=== PATIENT | female | born 1990 | race Caucasian/White ===

== ENCOUNTER 2016-11-28 22:20 | Outpatient (CLI) | payer MEDICAID ==
[~2016-11-28] VITALS: Ht 149.9 cm; Wt 86.2 kg
[2016-11-28 23:15] VITALS: Ht 149.9 cm; Wt 86.2 kg
[2016-11-28 23:16] VITALS: BP 112/63; PULSE 113; RESP 16
[2016-11-28] MEDS ORDERED: CALC600T24 PO (23:40)
[2016-11-28] MEDS ORDERED: PREN1TAB17 PO (23:40)
[2016-11-28] MEDS ORDERED: FER325 PO (23:41)
[2016-11-28 23:54] LABS: ADD UMIC YES; UR AMORPHOUS CRYSTAL FEW /HPF (NONE SEEN); UR ASCORBIC ACID NEGATIVE (NEGATIVE); UR BILIRUBIN (Dip) NEGATIVE (NEGATIVE); UR BLOOD (Dip) NEGATIVE (NEGATIVE); UR CLARITY CLOUDY (CLEAR); UR COLOR YELLOW (YELLOW); UR GLUCOSE (Dip) NEGATIVE (NEGATIVE); UR KETONES (Dip) NEGATIVE (NEGATIVE); UR LEUKOCYTE ESTERASE (Dip) NEGATIVE Leu/ul (NEGATIVE); UR MUCUS FEW /HPF (NONE SEEN); UR NITRITE (Dip) NEGATIVE (NEGATIVE); UR RBC 1 /HPF (0-5); UR SPECIFIC GRAVITY (Dip) 1.016 (1.003-1.030); UR SQUAMOUS EPITHELIAL CELL MODERATE /HPF (FEW); UR TOTAL PROTEIN (Dip) NEGATIVE (NEGATIVE); UR UROBILINOGEN (Dip) NEGATIVE (NEGATIVE)
[2016-11-29 00:53] LABS: BASOPHIL # 0.1 10^3/ul (0.0-0.1); BASOPHILS % 0.4 % (0.0-2.0); EOSINOPHILS # 0.6 10^3/ul (0.0-0.5); EOSINOPHILS % 4.5 % (0.0-7.0); HEMATOCRIT 31.7 % (37.0-47.0); HEMOGLOBIN 10.5 g/dl (12.0-16.0); LYMPHOCYTES # 2.7 10^3/ul (0.8-2.9); LYMPHOCYTES % 21.9 % (15.0-51.0); MEAN CORPUSCULAR HEMOGLOBIN 31.9 pg (29.0-33.0); MEAN CORPUSCULAR HGB CONC 33.1 g/dl (32.0-37.0); MEAN CORPUSCULAR VOLUME 96.4 fl (82.0-101.0); MEAN PLATELET VOLUME 9.5 fl (7.4-10.4); NEUTROPHIL # 7.8 10^3/ul (1.6-7.5); NEUTROPHILS % 64.1 % (39.0-77.0); PLATELET COUNT 317 10^3/UL (140-415); RED BLOOD COUNT 3.29 10^6/ul (4.20-5.40); RED CELL DISTRIBUTION WIDTH 13.9 % (11.5-14.5); WHITE BLOOD COUNT 12.2 10^3/ul (4.8-10.8)
[2016-11-29 01:24] LABS: ALBUMIN 3.2 g/dl (3.3-4.9); ALBUMIN/GLOBULIN RATIO 0.84; CALCIUM 9.7 mg/dl (8.4-10.2); CREATININE 0.45 mg/dl (0.44-1.00); POTASSIUM 3.7 mmol/L (3.5-5.1)
--- NOTE | 2016-11-29 02:11 | TRIAGE ---
OB Triage Datetime Report Generated by CPN: 11/29/2016 02:11 Datetime: 11/29/2016 01:45 Stage of : OB Triage Datetime: 11/29/2016 01:35 Stage of : OB Triage Datetime: 11/29/2016 01:30 Stage of : OB Triage Labor Evaluation Frequency: 4-8 Monitor Mode: External Duration (sec)2399: 90-120 Quality: Mild Resting Tone [place]: Relaxed Contraction Comments: PT DENIES FEELING UC'S Heart Rate FHR Baseline Rate: 145 Monitor Mode: External US Variability: Moderate 6-25 bpm Accelerations: 15X15 Decelerations: None Comments: SOME LOSS OF CONTACT DUE TO BABY MOVING FREQUENTLY Pain Assessment Pain Scale: 6 Pain Presence: Constant Pain Type: Sharp Pain Location: RUQ Pain Goal: 3 Pain Relief Measures: Comfort Measures Datetime: 11/29/2016 00:30 Stage of : OB Triage Labor Evaluation Frequency: X4 Monitor Mode: External Duration (sec)2399: 90-120 Quality: Mild Resting Tone [place]: Relaxed Contraction Comments: PT DENIES FEELING UC'S Heart Rate FHR Baseline Rate: 135 Monitor Mode: External US Variability: Moderate 6-25 bpm Accelerations: 15X15 Decelerations: None Comments: SOME LOSS OF CONTACT DUE TO BABY MOVING FREQUENTLY Datetime: 11/28/2016 23:30 Stage of : OB Triage Labor Evaluation Frequency: X3 Monitor Mode: External Duration (sec)2399: 60-100 Quality: Mild Resting Tone [place]: Relaxed Contraction Comments: PT DENIES FEELING UC'S Heart Rate FHR Baseline Rate: 145 Monitor Mode: External US Variability: Moderate 6-25 bpm Accelerations: 15X15 Decelerations: None Datetime: 11/28/2016 23:24 Stage of : OB Triage Assessment Type: Triage Maternal Assessment Level of Consciousness: Fully Conscious DTR's/Clonus: DTRs 2+; No Clonus Headache: Denies Blurred Vision: No Respiratory Effort: Unlabored; Regular Rhythm; Equal Expansion Breath Sounds, Left: Clear and Equal Breath Sounds, Right: Clear and Equal Nausea/Vomiting: Denies RUQ Epigastric Pain: Denies Lower Extremities Edema: Bilateral Lower Extremities Degree: 1+ Upper Extremities Edema: None Degree: None Facial Edema: None Temperature Route: Oral Fall Risk Assessment History of Falling: (0) No Secondary Diagnosis: (0) No Ambulatory Aid: (0) Bedrest/Nurse Assist IV Therapy: (0) No Gait: (0) Normal/Bedrest/Immobile Mental Status: (0) Oriented to Own Ability Fall Score: 0 Fall Risk Score Definition: No Risk: No action required Pain Assessment Pain Scale: 8 Pain Presence: Constant Pain Type: Sharp Pain Location: Abdomen (Annotations: RUQ) Pain Goal: 3 Pain Relief Measures: Comfort Measures Datetime: 11/28/2016 23:23 EGA: 31.6 Datetime: 11/28/2016 23:09 Stage of : OB Triage Datetime: 11/28/2016 23:00 Stage of : OB Triage Datetime: 11/28/2016 22:55 Stage of : OB Triage Datetime: 11/28/2016 22:30 Stage of : OB Triage Time of Arrival: 11/28/2016 22:12 Arrived By: Wheelchair Arrived From: Emergency Dept Chief Complaint: PT STATES L ABDOMINAL PAIN /10 SINCE THURSDAY WHICH WORSENS WHEN SHE STANDS; DENIE S ANY OTHER SYMPTOMS Movement: Present Contractions: Regular Contractions: 4-9 Rupture of Membranes: Denies Vaginal Bleeding: None Vaginal Discharge: Denies Recent Sexual Intercouse: Denies Abdominal Trauma: Not Applicable Patient Complaints: Epigastric Pain Time Provider Notified: 11/28/2016 23:00 Provider Notified: JAH Initial Plan: EFM Contraction Comments: TOCO APPLIED Comments: US APPLIED
--- NOTE | 2016-11-29 04:36 | PN ---
Triage Information Date/Time 11/29/16 Reason for visit: abdominal pain on left side for 5days Weeks of Gestation 32weeks /Para A1(sab) Diabetes: none Hypertention: none Additional information denies any other symptoms such as nausea ,vomiting or diarrhea or any fever chills or urinary symptoms positional pain alleviated by resting Objective Vital Signs Date Time Temp Pulse Resp B/P Pulse Ox O2 Delivery O2 Flow Rate FiO2 11/28/16 23:16 98.4 113 16 112/63 Room Air Heart Rate: 140's Contractions: 6-10 Minutes Apart Exam mild uterine activities which is not felt by patient Results/Medications Result Diagram: 11/29/16 0012 11/29/16 0012 Results 24 hrs Laboratory Tests Test 11/28/16 23:00 11/29/16 00:12 Urine Color YELLOW Urine Clarity CLOUDY A Urine pH 6.0 Urine Specific [place] 1.016 Urine Ketones NEGATIVE Urine Nitrite NEGATIVE Urine Bilirubin NEGATIVE Urine Urobilinogen NEGATIVE Urine Leukocyte Esterase NEGATIVE Urine Microscopic RBC 1 Urine Microscopic WBC 5 Urine Squamous Epithelial Cells MODERATE Urine Amorphous Crystals FEW A Urine Mucus FEW A Urine Hemoglobin NEGATIVE Urine Glucose NEGATIVE Urine Total Protein NEGATIVE White Blood Count 12.2 H Red Blood Count 3.29 L Hemoglobin 10.5 L Hematocrit 31.7 L Mean Corpuscular Volume 96.4 Mean Corpuscular Hemoglobin 31.9 Mean Corpuscular Hemoglobin Concent 33.1 Red Cell Distribution Width 13.9 Platelet Count 317 Mean Platelet Volume 9.5 Neutrophils % 64.1 Lymphocytes % 21.9 Monocytes % 8.0 Eosinophils % 4.5 Basophils % 0.4 Nucleated Red Blood Cells % 0.0 Neutrophils # 7.8 H Lymphocytes # 2.7 Monocytes # 1.0 H Eosinophils # 0.6 H Basophils # 0.1 Nucleated Red Blood Cells # 0.0 Sodium Level 136 Potassium Level 3.7 Chloride Level 106 Carbon Dioxide Level 23 Anion Gap 11 Blood Urea Nitrogen 9 Creatinine 0.45 Glucose Level 97 Calcium Level 9.7 Total Bilirubin 0.0 L Direct Bilirubin 0.00 Indirect Bilirubin 0.0 Aspartate Amino Transf (AST/SGOT) 16 Alanine Aminotransferase (ALT/SGPT) 22 Alkaline Phosphatase 98 Total Protein 7.0 Albumin 3.2 L Globulin 3.80 H Albumin/Globulin Ratio 0.84 Imaging Results BPP8/8 CVL 3.8 EMORY 24.6 Disposition: Discharge Assessment/Plan IUP 32weeks abdominal pain left(ligament pain) polyhydroamnios Plan discharge home RTH for EMORY in 3days abdominal binder ABRIL TYSON MD Nov 29, 2016 04:36
--- NOTE | 2016-11-29 08:30 | RADRPT ---
PROCEDURE: Obstetrical ultrasound for biophysical profile CLINICAL INDICATION: Biophysical profile. . TECHNIQUE: Obstetrical ultrasound of the uterus for biophysical profile. Transabdominal and transvaginal views are obtained. COMPARISON: None FINDINGS: Single intrauterine gestation. Presentation: Cephalic. Placenta: Anterior. No evidence of placental abruption. No evidence of placenta previa. Cervix is closed as visualized transvaginally measuring 3.8 cm. breathing movement = 2/2 tone = 2/2 motion = 2/2 EMORY = 2/2 EMORY = 24.6 cm heart rate: 161 beats per minute IMPRESSION: Single intrauterine gestation. Biophysical profile 09/16 Polyhydramnios. RPTAT: AADD .Benjamín Leonard MD, Date Time Electronically viewed and signed by .Benjamín Leonard MD, on 11/28/2016 23:59 .B/
== END 2016-11-29 01:55 | disposition home or self-care (01) ==
LOC: OBT 22:20 → L-D 22:20 → OBT 11-29 01:55
PROVIDERS: ATTEND Obstetrics & Gynecology
DX: O26.893 Other specified pregnancy related conditions, third trimester (principal); R10.9 Unspecified abdominal pain; O40.3XX0 Polyhydramnios, third trimester, not applicable or unspecified; Z3A.32 32 weeks gestation of pregnancy
CPT/HCPCS: 76817; 76818; 80053; 81001; 85025; Z7500; G0463

== ENCOUNTER 2016-12-02 11:04 | Outpatient (CLI) | payer MEDICAID ==
[~2016-12-02] VITALS: Ht 149.9 cm; Wt 84.8 kg
[~2016-12-02 11:04] MED LIST: CALC600T24 PO; FER325 PO; PREN1TAB17 PO
[2016-12-02 11:54] VITALS: BP 123/68; PULSE 118; RESP 18
[2016-12-02 11:55] VITALS: Ht 149.9 cm; Wt 84.8 kg
--- NOTE | 2016-12-02 13:08 | RADRPT ---
PROCEDURE: OB ultrasound for biophysical profile CLINICAL INDICATION: Decreased movement TECHNIQUE: Multiple sonographic images of the pelvis were obtained. Transabdominal views of the g ravid uterus are available for review. The images were reviewed on a PACS workstation. COMPARISON: Biophysical profile dated 11/28/2016 FINDINGS: breathing movement = 2/2 tone = 2/2 motion = 2/2 EMORY = 2/2 EMORY = 22.8 cm Single live intrauterine with cardiac activity of 136 bpm. position is cephal ic. The placenta is anterior. IMPRESSION: 1. Single live intrauterine gestation. 2. Biophysical profile = 09/16. 3. EMORY = 22.8 cm. RPTAT: HH .Leandra Jo MD, Date Time Electronically viewed and signed by .Leandra Jo MD, on 12/02/2016 13:08 .G/
--- NOTE | 2016-12-02 13:44 | PN ---
Triage Information Date/Time December 02, 2016 Reason for visit: Here for follow-up on his stress test on biophysical profiles Weeks of Gestation 32+ weeks /Para 2 para 0 Diabetes: none Hypertention: none Additional information Was referred by labor is on 1020 for follow-up nondistressed test and biophysical profile Objective Vital Signs Date Time Temp Pulse Resp B/P Pulse Ox O2 Delivery O2 Flow Rate FiO2 12/02/16 11:54 99.3 118 18 123/68 Room Air Heart Rate: 140's Heart Rate Comments Reactive Contractions: None Results/Medications Imaging Results Biophysical profile = 09/16. EMORY = 22.8 cm. Disposition: Discharge Assessment/Plan Follow-up with the clinic as usual BRENDA YEBOAH MD Dec 02, 2016 13:44
--- NOTE | 2016-12-02 13:48 | PD.PPDC ---
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
--- NOTE | 2016-12-02 14:46 | TRIAGE ---
OB Triage Datetime Report Generated by CPN: 12/02/2016 14:45 Datetime: 12/02/2016 11:57 Comments: NST DONE Datetime: 12/02/2016 11:56 Labor Evaluation Frequency: OCC Monitor Mode: External Duration (sec)2399: 60-100 Quality: Mild Pattern: Normal: <= 5 Contractions in 10 Minutes Resting Tone [place]: Relaxed Heart Rate FHR Baseline Rate: 150 Monitor Mode: External US FHR Baseline Changes: No Baseline Change Variability: Moderate 6-25 bpm Accelerations: 15X15 Decelerations: None Category: Category I Pain Assessment Pain Presence: None/Denies Datetime: 12/02/2016 11:42 Time of Arrival: 12/02/2016 10:57 EGA: 32.3 Arrived By: Ambulatory Arrived From: Home Chief Complaint: Repeat BPP/NST Movement: Present Contractions: Irregular Rupture of Membranes: Denies Vaginal Bleeding: Normal Show Vaginal Discharge: Denies Recent Sexual Intercouse: Denies Abdominal Trauma: Not Applicable Patient Complaints: None Time Provider Notified: 12/02/2016 13:40 Provider Notified: Ziyad Initial Plan: BPP/NST Datetime: 12/02/2016 11:20 Assessment Type: Triage Maternal Assessment Level of Consciousness: Fully Conscious DTR's/Clonus: DTRs 2+; No Clonus Headache: Denies Blurred Vision: No Respiratory Effort: Unlabored; Regular Rhythm; Equal Expansion Breath Sounds, Left: Clear and Equal Breath Sounds, Right: Clear and Equal Nausea/Vomiting: Denies RUQ Epigastric Pain: Denies Lower Extremities Edema: Bilateral Lower Extremities Degree: Trace Upper Extremities Edema: Bilateral Upper Extremities Degree: Trace Facial Edema: None Fall Risk Assessment History of Falling: (0) No Secondary Diagnosis: (0) No Ambulatory Aid: (0) Bedrest/Nurse Assist IV Therapy: (0) No Gait: (0) Normal/Bedrest/Immobile Mental Status: (0) Oriented to Own Ability Fall Score: 0 Fall Risk Score Definition: No Risk: No action required Datetime: 11/28/2016 23:24 Fall Score: 0 Fall Risk Score Definition: No Risk: No action required Datetime: 11/28/2016 23:23 EGA: 31.6
== END 2016-12-02 14:30 | disposition home or self-care (01) ==
LOC: OBT 11:04 → OBG 11:04 → OBT 14:30
PROVIDERS: ATTEND Obstetrics & Gynecology
DX: O36.8130 Decreased fetal movements, third trimester, not applicable or unspecified (principal); Z3A.32 32 weeks gestation of pregnancy
CPT/HCPCS: 76818; Z7500; G0463

== ENCOUNTER 2017-01-20 13:50 | Inpatient (IN) | payer MEDICAID ==
[~2017-01-20] VITALS: Ht 149.9 cm; Wt 89.2 kg
[~2017-01-20 13:50] MED LIST changes: +OXYTOCIN 30 UNITS/LR 500 ML BAG IV ONE
[2017-01-20 14:30] VITALS: Ht 149.9 cm; Wt 89.2 kg
[2017-01-20] MEDS ORDERED: METHYLERGONOVINE 0.2 MG INJ IM PRN ×2 (14:30→21:30)
[2017-01-20] MEDS ORDERED: OXYTOCIN 30 UNITS/LR 500 ML IV SCH (14:30)
[2017-01-20] MEDS ORDERED: CEFAZOLIN 2 GM/50 ML (PMX) 50 ML IVPB SCH (14:30)
[2017-01-20] MEDS ORDERED: MISOPROSTOL 200 MCG TAB PR PRN ×2 (14:30→21:30)
[2017-01-20] MEDS ORDERED: OXYTOCIN 30 UNITS/LR 500 ML IV PRN ×2 (14:30→21:30)
[2017-01-20] MEDS ORDERED: CARBOPROST 250 MCG INJ IM PRN ×2 (14:30→21:30)
[2017-01-20 14:31] VITALS: BP 118/82; PULSE 96; RESP 18
[2017-01-20 14:36] LABS: BASOPHIL # 0.1 10^3/ul (0.0-0.1); BASOPHILS % 0.5 % (0.0-2.0); EOSINOPHILS # 0.4 10^3/ul (0.0-0.5); EOSINOPHILS % 3.7 % (0.0-7.0); HEMATOCRIT 38.7 % (37.0-47.0); HEMOGLOBIN 13.2 g/dl (12.0-16.0); LYMPHOCYTES # 2.4 10^3/ul (0.8-2.9); LYMPHOCYTES % 24.3 % (15.0-51.0); MEAN CORPUSCULAR HEMOGLOBIN 31.3 pg (29.0-33.0); MEAN CORPUSCULAR HGB CONC 34.1 g/dl (32.0-37.0); MEAN CORPUSCULAR VOLUME 91.7 fl (82.0-101.0); MEAN PLATELET VOLUME 10.3 fl (7.4-10.4); MONOCYTE # 0.7 10^3/ul (0.3-0.9); MONOCYTES % 7.2 % (0.0-11.0); NEUTROPHIL # 6.4 10^3/ul (1.6-7.5); NEUTROPHILS % 63.8 % (39.0-77.0); PLATELET COUNT 308 10^3/UL (140-415); RED BLOOD COUNT 4.22 10^6/ul (4.20-5.40); RED CELL DISTRIBUTION WIDTH 13.7 % (11.5-14.5)
[2017-01-20] MEDS: LACTATED RINGER'S 1,000 ML IV SCH ×3 (14:41→21:46)
[2017-01-20 14:49] LABS: INR 0.9; PROTIME 12.2 Sec (11.9-14.9)
[2017-01-20 14:55] LABS: PARTIAL THROMBOPLASTIN TIME 26.3 Sec (25.0-35.0)
[2017-01-20] MEDS ORDERED: morphine SULFATE/PF (10 MG/10 ML) INJ ONE (15:47)
[2017-01-20] MEDS ORDERED: PHENYLephrine (100 MCG/ML) 5ML SYG ONE ×2 (15:58→16:32)
[2017-01-20] MEDS ORDERED: ONDANSETRON 4 MG INJ ONE (16:25)
--- NOTE | 2017-01-20 17:03 | HP ---
Date/Time of Note Date/Time of Note DATE: 01/20/17 TIME: 16:54 OB - History Hx of Present Free Text/Dictation 26-year-old female 1 para 0 admitted for primary per patient desire Possibility of macrosomia with gestational diabetes and dangers to delivering the vaginally was described to the patient and she elected to have a primary section as mode of her delivery Last Menstrual Period: May 03, 2016 Estimated Due Date: Jan 24, 2017 : 1 Para: 0 Care: Good Care Ultrasounds: Normal mid trimester US Obstetrical Complications: Gestational Diabetes Medical Complications: None Past Family/Social History * Past Medical, Surgical, Family and Obstetric Histories reviewed from chart. Blood Type: O+ Rubella: immune RPR/VDRL: Negative GBS Status: Positive HBsAG: Negative OB Admission Exam Vital Signs Vital Signs Vital Signs Date Time Temp Pulse Resp B/P Pulse Ox O2 Delivery O2 Flow Rate FiO2 01/20/17 14:31 98.5 96 18 118/82 Room Air Physical Exam HEENT: WNL Heart: Rhythm Normal Lungs: Clear, Equal Abdomen: WNL Extremities: Normal Reflexes: Normal Cervical Dilatation: None Effacement: 0% Station: -3 Membranes: Intact Heart Rate: 140's Accelerations: Accelerations Present Decelerations: No Decelerations Varibility: Marked Contractions on Admission: None Last 72 hourBlood Glucose Bedside Glucose - 72 Hours Test 01/20/17 14:48 Bedside Glucose 79mg/dL (70-220) Last 72 hours Lab Results CBC & BMP 01/20/17 14:25 OB Assessment/Plan Reason for admission: section Other Assessment: 39+ weeks gestation Patient desires to have a delivery Possible microsomia Gestational diabetes Unengaged vertex Other plan: Primary delivery BRENDA YEBOAH MD Jan 20, 2017 17:03
--- NOTE | 2017-01-20 17:08 | OPR ---
Operative Report Planned Procedure Procedure date Jan 20, 2017 Procedure(s) Primary section Performed by see signature line Principal Associate Df. Buckley Anesthesiologist: MODE JACOBS Pre-procedure diagnosis Term gestation Gestational diabetes Possible macrosomia Patient desires Anesthesia Type: spinal Post-Procedure Post-procedure diagnosis Status post delivery Findings Live Baby in OT position Estimated Blood Loss: 500 - 600 mls Specimen(s) none Grafts/Implant(s) none Complication(s) none Pt Condition post procedure: stable Disposition: PACU Procedure Description Under satisfactory anaesthesia a Pfannenstiel incision was made two fingerbreadth above and parallel to the symphysis of pubis. Incision was extended laterally to the border of the Recti muscles on either sides. Incision was carried down with sharp and blunt dissection until fascia was reached. Anterior Recti muscle fascia was incised in mid portion and incision extended laterally to the border of skin incision. Fascia was mobilized from muscle superiorly and Recti muscles were from midline using sharp and blunt dissection. Peritoneum was visualized; Avoiding bowel and bladder it was incised . Incision was extended superiorly and inferiorly. Bladder blade was placed. Posterior peritoneum covering the lower segment of the uterus and lower segment of the uterus were incised. Incision was extended laterally to the border of Round Lig. on either sides and baby was delivered from OP. position . Amniotic fluid appeared clear. Cord blood was obtained and cord had 3 vessels . Placenta was delivered spontaneously and appeared intact and complete. Intrauterine cavity was rubbed with a laparotomy sponge. Uterine incision was closed in 2 layers using running stitches of No1 Monocryl. Hemostasis appeared secure. Ovaries and Fallopian tubes were within normal limits. Announcing needle, lap sponge and instrument count to be correct abdomen was closed in layers as follows: Peritoneum and Recti muscles with running stitches of 20 Vicryl. Fascia with running stitch of No 1 PDS. Subcutaneous tissue with running stitches of 20 Chromic and skin was closed using moni. Patient tolerated the procedure well and was transferred to [facility] in good condition. BRENDA YEBOAH MD Jan 20, 2017 17:08
[2017-01-20] MEDS ORDERED: ONDANSETRON 4 MG INJ IV STA (18:00)
[2017-01-20] MEDS ORDERED: KETOROLAC 30 MG INJ IM STA (18:50)
[2017-01-20] MEDS ORDERED: KETOROLAC 30 MG INJ ONE (18:52)
[2017-01-20] MEDS ORDERED: KETOROLAC 30 MG INJ IV STA (19:01)
[2017-01-20] MEDS ORDERED: METOCLOPRAMIDE 10 MG INJ IV PRN (19:30)
[2017-01-20] MEDS ORDERED: ONDANSETRON 4 MG INJ IV PRN ×2 (19:30)
[2017-01-20] MEDS ORDERED: ALBUTEROL 0.083% (NEB) 2.5 MG/3 ML AMP HHN PRN (19:30)
[2017-01-20] MEDS ORDERED: NALOXONE (0.4 MG/ML) INJ IV PRN (19:30)
[2017-01-20] MEDS ORDERED: KETOROLAC 30 MG INJ IV PRN ×2 (19:30)
[2017-01-20] MEDS ORDERED: DIPHENHYDRAMINE 50 MG INJ IV PRN ×2 (19:30)
[2017-01-20] MEDS ORDERED: HYDROmorphONE 0.5 MG/0.5 ML SYG IV PRN ×2 (19:30)
[2017-01-20] MEDS ORDERED: MEPERIDINE 25 MG INJ IV PRN (19:30)
[2017-01-20] MEDS ORDERED: HYDROmorphONE (0.2 MG/ML) 10ML SYG IV PRN ×2 (19:30)
[2017-01-20] MEDS ORDERED: FENTAnyl 50 MCG/ML VIAL IV PRN ×2 (19:30)
[2017-01-20 21:00] VITALS: BP 101/56; PULSE 86; RESP 18
[2017-01-20] MEDS ORDERED: NA PHOSPHATE/BIPHOS 133 ML ENEMA PR PRN (21:30)
[2017-01-20] MEDS ORDERED: LANOLIN 7 GM TUBE TOP PRN (21:30)
[2017-01-20] MEDS: CEFAZOLIN 2 GM/50 ML (PMX) 50 ML IV SCH (21:46)
[2017-01-20] MEDS: CLINDAMYCIN 300 MG CAP PO SCH (23:33)
[2017-01-21] VITALS (7 sets, daily range): BP systolic 98–111; BP diastolic 56–72; PULSE 84–103; RESP 17–19
[2017-01-21] MEDS: CLINDAMYCIN 300 MG CAP PO SCH ×4 (05:32→23:41)
[2017-01-21] MEDS: CEFAZOLIN 2 GM/50 ML (PMX) 50 ML IV SCH ×2 (05:32→13:32)
[2017-01-21] MEDS: LACTATED RINGER'S 1,000 ML IV SCH ×3 (06:26→21:27)
[2017-01-21] MEDS: ACCU-CHEK XX SCH ×4 (07:30→20:05)
[2017-01-21] MEDS: metFORMIN (XR) 500 MG TAB PO SCH ×2 (08:55→20:37)
[2017-01-21] MEDS: SENNA/DOCUSATE NA (8.6MG/50MG) TAB PO SCH ×2 (08:55→20:37)
[2017-01-21] MEDS ORDERED: BISACODYL 10 MG SUPP PR ONE (10:00)
[2017-01-21 10:48] LABS: BASOPHILS % 0.4 % (0.0-2.0); EOSINOPHILS # 0.2 10^3/ul (0.0-0.5); EOSINOPHILS % 1.9 % (0.0-7.0); HEMATOCRIT 26.6 % (37.0-47.0); HEMOGLOBIN 8.9 g/dl (12.0-16.0); LYMPHOCYTES # 1.8 10^3/ul (0.8-2.9); LYMPHOCYTES % 17.9 % (15.0-51.0); MEAN CORPUSCULAR HEMOGLOBIN 31.1 pg (29.0-33.0); MEAN CORPUSCULAR HGB CONC 33.5 g/dl (32.0-37.0); MEAN PLATELET VOLUME 9.6 fl (7.4-10.4); MONOCYTE # 0.7 10^3/ul (0.3-0.9); MONOCYTES % 7.1 % (0.0-11.0); NEUTROPHIL # 7.3 10^3/ul (1.6-7.5); NEUTROPHILS % 72.3 % (39.0-77.0); PLATELET COUNT 209 10^3/UL (140-415); RED BLOOD COUNT 2.86 10^6/ul (4.20-5.40); RED CELL DISTRIBUTION WIDTH 13.6 % (11.5-14.5); WHITE BLOOD COUNT 10.1 10^3/ul (4.8-10.8)
[2017-01-21] MEDS: IBUPROFEN 800 MG TAB PO SCH ×2 (17:36→23:41)
[2017-01-21] MEDS: HYDROCODONE/APAP (5/325) TAB PO PRN (17:52)
[2017-01-21] MEDS ORDERED: HYDROCODONE/APAP (5/325) TAB PO PRN (19:30)
--- NOTE | 2017-01-21 19:46 | PN ---
Date/Time of Note Date/Time of Note DATE: 01/21/17 TIME: 19:45 Assessment/Plan VTE Prophylaxis VTE Prophylaxis Intervention: ambulation Lines/Catheters IV Catheter Type (from Nrsg): Peripheral IV Assessment/Plan Assessment/Plan Status post postop day 1 Advance diet and ambulate Continue to monitor vital signs and blood sugars Subjective 24 Hr Interval Summary No bowel movement Passing flatus Constitutional: BM, ambulates, flatus, improved, no complaints, urine output Pain Control: well controlled Exam/Review of Systems Vital Signs Vitals Vital Signs Date Time Temp Pulse Resp B/P Pulse Ox O2 Delivery O2 Flow Rate FiO2 01/21/17 16:30 98.8 103 17 111/70 Room Air 01/21/17 11:30 100 01/21/17 02:57 21 Intake and Output 01/20/17 01/20/17 01/21/17 15:00 23:00 07:00 Intake Total 1000 ml 425 ml 1050 ml Output Total 1000 ml 600 ml Balance 1000 ml -575 ml 450 ml Exam Free Text/Dictation Abdomen is soft and not distended, sounds are present Incision is covered Constitutional: alert, oriented, well developed Psych: nl mood/affect, no complaints Head: atraumatic, normocephalic Eyes: EOMI, nl conjunctiva, nl lids, nl sclera ENMT: mucosa pink and moist, nl external ears & nose, nl lips & teeth, nl nasal mucosa & septum Neck: non-tender, supple Respiratory: clear to auscultation, normal air movement Cardiovascular: nl pulses, regular rate and rhythm Gastrointestinal: nl liver, spleen, non-tender, soft Drains None Musculoskeletal: nl extremities to inspection, nl gait and stance Extremities: normal pulses 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
[2017-01-21] MEDS ORDERED: IBUPROFEN 800 MG TAB PO SCH (22:00)
[2017-01-22] MEDS ORDERED: BISACODYL 10 MG SUPP PR ONE (00:36)
[2017-01-22] MEDS: OXYCODONE/ACETAMINOPHEN (5/325) TAB PO PRN ×2 (00:42→11:30)
[2017-01-22 04:00] VITALS: BP 111/65; PULSE 95; RESP 18
[2017-01-22] MEDS: LACTATED RINGER'S 1,000 ML IV SCH ×2 (05:27→13:27)
[2017-01-22] MEDS: IBUPROFEN 800 MG TAB PO SCH ×3 (05:37→21:07)
[2017-01-22] MEDS: CLINDAMYCIN 300 MG CAP PO SCH ×4 (05:38→23:41)
[2017-01-22] MEDS: ACCU-CHEK XX SCH ×3 (07:30→13:50)
[2017-01-22 08:30] VITALS: BP 111/70; PULSE 90; PULSE 92; RESP 18; RESP 20
[2017-01-22] MEDS: SENNA/DOCUSATE NA (8.6MG/50MG) TAB PO SCH ×2 (09:23→21:07)
[2017-01-22] MEDS: metFORMIN (XR) 500 MG TAB PO SCH ×2 (09:23→21:07)
[2017-01-22 16:00] VITALS: BP 112/72; PULSE 96; RESP 20
--- NOTE | 2017-01-22 17:14 | DS ---
Date/Time of Note Date/Time of Note home today or next day DATE: 01/22/17 TIME: 17:11 Obstetrical Discharge Record Final Diagnosis Final Diagnosis: Term delivered Other Final Diagnosis S/P C/S Section Section: Repeat Complications Gestational Diabetes Condition on Discharge Physical Assessment Last Vitals: See nurse's notes Voiding: Yes Bowel Movement: Yes Breast: Soft, non-tender, Filling Fundus: Firm Abdomen and Incision: soft BS + Incision healing well Calf Tenderness: No Patient Condition: Good BRENDA YEBOAH MD Jan 22, 2017 17:14
--- NOTE | 2017-01-22 17:17 | DS ---
Date/Time of Note Date/Time of Note DATE: 01/22/17 TIME: 17:16 Discharge Summary Admission/Discharge Info Admit Date/Time Jan 20, 2017 at 13:50 Discharge Date/Time January 22 or 2016 Discharge Diagnosis Status post repeat Patient Condition: Good Procedures Salvatore delivery Hx of Present Illness 26-year-old female underwent repeat section Hospital Course Uncomplicated Home Meds Reported Medications Ferrous Sulfate* (Ferrous Sulfate*) 325 Mg Tabec, 325 MG PO DAILY, TAB 11/28/16 Calcium Carbonate* (Calcium Carbonate*) 600 MG Ca Tab, 600 MG PO, TAB 11/28/16 Vit-Iron Fumarate-FA ( Tablet) 1 Each Tablet, 1 TAB PO DAILY, TAB 11/28/16 Follow-up Plan 5 6 days in the clinic for staple removal Primary Care Provider Care Physician No Primary Time spent on discharge: > 30 minutes Pending Labs Laboratory Tests Test 01/21/17 17:39 01/21/17 20:13 01/22/17 08:01 01/22/17 11:23 Bedside Glucose 108mg/dL (70-220) 137mg/dL (70-220) 87mg/dL (70-220) 91mg/dL (70-220) BRENDA YEBOAH MD Jan 22, 2017 17:17
--- NOTE | 2017-01-22 17:18 | PD.PPDC ---
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
[2017-01-22] MEDS ORDERED: METF500T3 PO (17:19)
[2017-01-22] MEDS ORDERED: IBUP800T25 PO (17:19)
[2017-01-22 19:41] VITALS: BP 109/62; PULSE 86; RESP 18
[2017-01-22] MEDS: HYDROCODONE/APAP (5/325) TAB PO PRN (19:41)
[2017-01-23 04:29] VITALS: BP 116/69; PULSE 95; RESP 18
[2017-01-23] MEDS: IBUPROFEN 800 MG TAB PO SCH ×2 (05:39→13:24)
[2017-01-23] MEDS: CLINDAMYCIN 300 MG CAP PO SCH ×3 (05:39→18:39)
[2017-01-23 08:00] VITALS: BP 121/74; RESP 18
[2017-01-23] MEDS ORDERED: DIPHTH/TET/ACEL PERTUSS (ADULT) 0.5 ML VIAL IM* ONE (09:00)
[2017-01-23] MEDS ORDERED: MEASLES,MUMPS,RUBELLA VACCINE INJ SC* ONE (09:00)
[2017-01-23] MEDS: metFORMIN (XR) 500 MG TAB PO SCH (09:09)
[2017-01-23] MEDS: SENNA/DOCUSATE NA (8.6MG/50MG) TAB PO SCH (09:09)
[2017-01-23] MEDS: HYDROCODONE/APAP (5/325) TAB PO PRN (10:38)
[2017-01-23 16:00] VITALS: BP 106/60; PULSE 78; RESP 18
[2017-01-23] MEDS ORDERED: IBUP800T25 PO (16:22)
[2017-01-23] MEDS ORDERED: METF500T3 PO (16:25)
[2017-01-23] MEDS: OXYCODONE/ACETAMINOPHEN (5/325) TAB PO PRN (17:48)
--- NOTE | 2017-01-26 10:06 | CONS ---
Date/Time of Note Date/Time of Note DATE: 01/26/17 TIME: 10:05 Consultation Date/Type/Reason Admit Date/Time Jan 20, 2017 at 13:50 Initial Consult Date 01/21/17 Type of Consultation: Anesthesiology Reason for Consultation Follow up 24 HR Interval Summary Free Text/Dictation Pt seen and examined at bedside on 01/21/17 was POD#1 s/p c/s. Pt received spinal duramorph injection for post op pain. She stated she was doing well with adequate pain control. No N/V/WHITLOCK/Numbness in extremities. Will follow. Exam/Review of Systems Vital Signs Vitals Vital Signs Date Time Temp Pulse Resp B/P Pulse Ox O2 Delivery O2 Flow Rate FiO2 01/23/17 16:00 98.0 78 18 106/60 Room Air Results Results 24 hrs Laboratory Tests Test 01/25/17 13:51 Lab Scanned Report REFERENCE LAB MODE JACOBS Jan 26, 2017 10:06
== END 2017-01-23 18:58 | disposition home or self-care (01) | DRG 766 ==
LOC: L-D 13:50 → PP1 20:51
PROVIDERS: ADMIT Obstetrics & Gynecology; ATTEND Obstetrics & Gynecology
PROC: 3E033VJ Introduction of Other Hormone into Peripheral Vein, Percutaneous Approach (ICD-10-PCS; 2017-01-20)
PROC: 10D00Z1 Extraction of Products of Conception, Low, Open Approach (ICD-10-PCS; principal; 2017-01-20 15:30)
DX: O24.429 Gestational diabetes mellitus in childbirth, unspecified control (principal); O36.63X0 Maternal care for excessive fetal growth, third trimester, not applicable or unspecified; Z3A.39 39 weeks gestation of pregnancy; Z37.0 Single live birth
CPT/HCPCS: 82962; 85025; 85610; 85730; 86592; 86850; 86900; 86901; 87340; 90715; 94760; 99464; J0690; J1885; J2274; J2370; J2405; J2590; J7120

== ENCOUNTER 2017-01-26 12:48 | Inpatient (IN) | payer MEDICAID ==
[~2017-01-26] VITALS: Ht 149.9 cm; Wt 81.2 kg
[~2017-01-26 12:48] MED LIST changes: +IBUP800T25 PO; +METF500T3 PO; -OXYTOCIN 30 UNITS/LR 500 ML BAG IV ONE
--- NOTE | 2017-01-26 13:46 | ERD ---
ER Documentation Chief Complaint Chief Complaint Pt referred by PMD for evaluation of incision for infection HPI 26-year-old female who is 6 days post who is G2 0 comes in for evaluation of wound check for erythema and blistering to the skin. Patient's OB is Dr Ziyad Feliz, and was referred to the er by Juliet Sierra CNM, Patient states that she has had pain around the surgical site, and she has had blistering and redness beginning today, she went into the get her wound check at the office and they referred her to emergency room. Patient denies fevers, chills, nausea, vomiting. ROS All systems reviewed and are negative except as per history of present illness. Medications Home Meds Active Scripts Metformin* (Glucophage* XR) 500 Mg Tab.sr.24h, 500 MG PO BID, #120 6 Refills Prov:BRENDA YEBOAH MD 01/23/17 Ibuprofen* (Ibuprofen*) 800 Mg Tablet, 800 MG PO Q8, #30 TAB 0 Refills Prov:BRENDA YEBOAH MD 01/23/17 Reported Medications Ferrous Sulfate* (Ferrous Sulfate*) 325 Mg Tabec, 325 MG PO DAILY, TAB 11/28/16 Calcium Carbonate* (Calcium Carbonate*) 600 MG Ca Tab, 600 MG PO, TAB 11/28/16 Vit-Iron Fumarate-FA ( Tablet) 1 Each Tablet, 1 TAB PO DAILY, TAB 11/28/16 Allergies Allergies: Coded Allergies: No Known Allergy (Unverified , 11/28/16) PMhx/Soc History of Surgery: Yes () Anesthesia Reaction: No Hx Neurological Disorder: No Hx Respiratory Disorders: No Hx Cardiac Disorders: No Hx Psychiatric Problems: No Hx Miscellaneous Medical Probl: No Hx Alcohol Use: No Hx Substance Use: No Hx Tobacco Use: No Smoking Status: Never smoker Physical Exam Vitals Vital Signs Date Time Temp Pulse Resp B/P Pulse Ox O2 Delivery O2 Flow Rate FiO2 01/26/17 12:56 98.9 93 18 130/72 95 Physical Exam General: Well-developed, well-nourished. The patient appears in no acute distress. HEENT: Head is normocephalic, atraumatic. No scleral icterus. Neck: Supple. Nontender. Lungs: Clear to auscultation. Normal air movement. Heart: Regular rate and rhythm. S1 and S2 are normal. No murmurs, gallops, or rubs. Abdomen: Soft, site is intact, draining it is erythematous, warm, with blistering. Bowel sounds are normoactive. Extremities: No clubbing or cyanosis. Normal pulses. Moving extremities x 4. No weakness. Neurologic: Alert and oriented 3. No focal deficits. Skin: Normal turgor. No rash or lesions. Result Diagram: 01/26/17 1400 01/26/17 1400 Results 24 hrs Laboratory Tests Test 01/26/17 14:00 01/26/17 16:05 White Blood Count 11.610^3/ul Red Blood Count 3.0110^6/ul Hemoglobin 9.3g/dl Hematocrit 28.6% Mean Corpuscular Volume 95.0fl Mean Corpuscular Hemoglobin 30.9pg Mean Corpuscular Hemoglobin Concent 32.5g/dl Red Cell Distribution Width 13.8% Platelet Count 17263^3/UL Mean Platelet Volume 9.1fl Neutrophils % 67.8% Lymphocytes % 21.8% Monocytes % 6.4% Eosinophils % 2.7% Basophils % 0.3% Nucleated Red Blood Cells % 0.0/100WBC Neutrophils # 7.910^3/ul Lymphocytes # 2.510^3/ul Monocytes # 0.710^3/ul Eosinophils # 0.310^3/ul Basophils # 0.010^3/ul Nucleated Red Blood Cells # 0.010^3/ul Sodium Level 144mmol/L Potassium Level 4.0mmol/L Chloride Level 107mmol/L Carbon Dioxide Level 26mmol/L Anion Gap 15 Blood Urea Nitrogen 11mg/dl Creatinine 0.61mg/dl Glucose Level 96mg/dl Calcium Level 9.0mg/dl Total Bilirubin 0.2mg/dl Direct Bilirubin 0.00mg/dl Indirect Bilirubin 0.2mg/dl Aspartate Amino Transf (AST/SGOT) 38IU/L Alanine Aminotransferase (ALT/SGPT) 51IU/L Alkaline Phosphatase 112IU/L Total Protein 7.0g/dl Albumin 3.2g/dl Globulin 3.80g/dl Albumin/Globulin Ratio 0.84 Urine Color YELLOW Urine Clarity CLEAR Urine pH 7.0 Urine Specific [place] 1.030 Urine Ketones NEGATIVEmg/dL Urine Nitrite NEGATIVEmg/dL Urine Bilirubin NEGATIVEmg/dL Urine Urobilinogen 1+mg/dL Urine Leukocyte Esterase 1+Luke/ul Urine Microscopic RBC 2/HPF Urine Microscopic WBC 22/HPF Urine Hemoglobin 1+mg/dL Urine Glucose NEGATIVEmg/dL Urine Total Protein NEGATIVEmg/dl Current Medications Medications (Trade) Dose Ordered Sig/Meño Route PRN Reason Start Time Stop Time Status Last Admin Dose Admin IV Flush 10 ml 10 ml STK-MED ONCE .ROUTE 01/26/17 15:50 01/26/17 15:51 DC 01/26/17 15:52 Sodium Chloride (NS) 100 ml @ ud STK-MED ONCE .ROUTE 01/26/17 15:50 01/26/17 15:51 DC 01/26/17 15:53 Iohexol 150 ml 150 ml STK-MED ONCE .ROUTE 01/26/17 15:50 01/26/17 15:51 DC 01/26/17 15:53 Ciprofloxacin/ Dextrose 200 ml @ 200 mls/hr ONCE ONCE IVPB 01/26/17 17:30 01/26/17 18:29 Vancomycin HCl (Vancocin) 250 ml @ 125 mls/hr ONCE STAT IVPB 01/26/17 17:27 01/26/17 19:26 DIAGNOSTIC IMAGING REPORT Patient: SHAYY ADAIR : 1990 Age: 26 Sex: F MR #: [id number] DOS: 01/26/17 1620 Ordering MD: TREVA WYATT PA-C Location: E Room/Bed: PROCEDURE: US Pelvis. CLINICAL INDICATION: Pelvic pain. section on 01/20/2017. TECHNIQUE: The pelvis was evaluated with transabdominal sonography in the axial and sagittal planes. COMPARISON: No prior study is available for comparison. FINDINGS: The uterus measures 19.2 x 11.5 x 7.4 cm. The endometrium is markedly heterogeneous and thickened measuring 37 mm. There is no uterine mass. The ovaries are not visualized. There is no other pelvic mass or free fluid. IMPRESSION: 1. Enlarged uterus consistent with the state. 2. Markedly thickened endometrium consistent with blood products or retained products of conception. 3. Ovaries not visualized. RPTAT: QQ .Carlos Enrique Palmer MD, Date Time Electronically viewed and signed by .Carlos Enrique Palmer MD, MD on 01/26/2017 17:26 .R/ CC: TREVA WYATT PA-C [place] [id number] Radiology Main Line: [phone] DIAGNOSTIC IMAGING REPORT Patient: SHAYY ADAIR : 1990 Age: 26 Sex: F MR #: [id number] DOS: 01/26/17 1337 Ordering MD: TREVA WYATT PA-C Location: [facility] Room/Bed: PROCEDURE: CT ABDOMEN AND PELVIS WITH IV CONTRAST. CLINICAL INDICATION: Post pain TECHNIQUE: CT scan of the abdomen and pelvis without contrast was performed on a multidetector high-resolution CT scanner following the use of IV contrast. 85 cc Omnipaque-300 was administered. Coronal and sagittal reformatted images were obtained from the axial source images. Images were reviewed on a high- resolution PACS workstation. The total exam CTDI equals 19.7 mGy and the total exam DLP equals 1026 mGy-cm. One or more of the following dose reduction techniques were used: Automated exposure control. Adjustment of the mA and/or kV according to patient size. Use of iterative reconstruction technique. DICOM images are available. COMPARISON: None FINDINGS: CT abdomen: A focal 1.1 cm irregular nodular opacity with left lower lobe, probably focal atelectasis. The remaining lung bases are clear. Heart size is within normal limits. Hepatic morphology is within normal limits. No gross masses or lesions. The gallbladder is distended with mild gallstones. No intrahepatic or extrahepatic biliary dilatation. The spleen and pancreas are within normal limits. Both adrenal glands are within normal limits. Both kidneys are in normal anatomic position. No gross renal/ureteric calculi. No evidence of obstruction or hydronephrosis. There is a 1.1 cm left mid pole hyperdense lesion, probably proteinaceous or hemorrhagic cyst. The visualized GI tract demonstrate normal caliber loops of small and large bowel. No evidence of bowel obstruction. The appendix is within normal limits. The aorta is within normal limits. There is no significant retroperitoneal lymphadenopathy. CT pelvis: The bladder is unremarkable. The uterus is enlarged, measuring 11.0 x 12.4 x 22 cm. Heterogeneous material and hyperdense material is noted within the endometrial canal and along the periphery of the fundus. Several small foci of air is identified. No same free fluid. No same pelvic lymphadenopathy. The rectosigmoid colon is within limits. There is anterior abdominal subcutaneous fat stranding and small amount of fluid within the umbilicus region. IMPRESSION: 1. Enlarged uterus post , measuring 11.0 x 24 x 22 cm. There is large amount of heterogeneous material within the endometrial canal and peripheral hyperdensity along the periphery and fundus of the uterus, likely consistent with hemorrhagic products. Cannot exclude retained products of conception. Several small foci of air is identified, likely related to recent surgery. Correlate with clinical findings to exclude infection. 2. No evidence of free fluid or free air. No gross focal fluid collections. 3. Cholelithiasis. 4. No evidence of bowel obstruction. Stool filled loops of large bowel suggestive of constipation. The appendix is within normal limits. 5. Mild anasarca and small amount of fluid within the umbilical region. RPTAT: AAPP Physician Osmin Date Time Electronically viewed and signed by Physician Osmin on 01/26/2017 16:04 JL/ CC: TREVA WYATT PA-C Procedures/MDM ED COURSE: Labs, urine, CT abdomen pelvis with IV contrast the pelvic ultrasound performed. Consultation: Dr. Yeboah evaluated the patient, and agrees that there is concern for infection and will admit. MEDICAL DECISION MAKIN-year-old female comes in status post from 6 days ago, the patient was seen by her OB and agrees and will admit for antibiotics. Also concern for possible retained products seen on the CT as well as a pelvic ultrasound. Patient will be admitted to [facility] with Cipro, vancomycin antibiotics started in the ER. Departure Diagnosis: Primary Impression: Encounter for postoperative wound check Condition: Stable TREVA WYATT PA-C Jan 26, 2017 13:46
[2017-01-26 14:18] LABS: BASOPHILS % 0.3 % (0.0-2.0); EOSINOPHILS # 0.3 10^3/ul (0.0-0.5); EOSINOPHILS % 2.7 % (0.0-7.0); HEMATOCRIT 28.6 % (37.0-47.0); HEMOGLOBIN 9.3 g/dl (12.0-16.0); LYMPHOCYTES # 2.5 10^3/ul (0.8-2.9); LYMPHOCYTES % 21.8 % (15.0-51.0); MEAN CORPUSCULAR HEMOGLOBIN 30.9 pg (29.0-33.0); MEAN CORPUSCULAR HGB CONC 32.5 g/dl (32.0-37.0); MEAN PLATELET VOLUME 9.1 fl (7.4-10.4); MONOCYTE # 0.7 10^3/ul (0.3-0.9); MONOCYTES % 6.4 % (0.0-11.0); NEUTROPHIL # 7.9 10^3/ul (1.6-7.5); NEUTROPHILS % 67.8 % (39.0-77.0); PLATELET COUNT 426 10^3/UL (140-415); RED BLOOD COUNT 3.01 10^6/ul (4.20-5.40); RED CELL DISTRIBUTION WIDTH 13.8 % (11.5-14.5); WHITE BLOOD COUNT 11.6 10^3/ul (4.8-10.8)
[2017-01-26 14:33] LABS: ALBUMIN 3.2 g/dl (3.3-4.9); ALBUMIN/GLOBULIN RATIO 0.84; BILIRUBIN,INDIRECT 0.2 mg/dl (0-1.1); BILIRUBIN,TOTAL 0.2 mg/dl (0.2-1.3); CREATININE 0.61 mg/dl (0.44-1.00)
[2017-01-26] MEDS ORDERED: SOD CHLORIDE 0.9% 100 ML ONE (15:50)
[2017-01-26] MEDS ORDERED: IOHEXOL 300MG/ML 150 ML BTL ONE (15:50)
--- NOTE | 2017-01-26 16:04 | RADRPT ---
PROCEDURE: CT ABDOMEN AND PELVIS WITH IV CONTRAST. CLINICAL INDICATION: Post pain TECHNIQUE: CT scan of the abdomen and pelvis without contrast was performed on a multidetector hig h-resolution CT scanner following the use of IV contrast. 85 cc Omnipaque-300 was administered. Aashish nal and sagittal reformatted images were obtained from the axial source images. Images were reviewed on a high-resolution PACS workstation. The total exam CTDI equals 19.7 mGy and the total exam DLP e quals 1026 mGy-cm. One or more of the following dose reduction techniques were used: Automated exposure control. Adjustment of the mA and/or kV according to patient size. Use of iterative reconstruction technique. DICOM images are available. COMPARISON: None FINDINGS: CT abdomen: A focal 1.1 cm irregular nodular opacity with left lower lobe, probably focal atelectasis. The remai joe lung bases are clear. Heart size is within normal limits. Hepatic morphology is within normal limits. No gross masses or lesions. The gallbladder is distended with mild gallstones. No intrahepatic or extrahepatic biliary dilatation. The spleen and pancreas are within normal limits. Both adrenal glands are within normal limits. Both kidneys are in normal anatomic position. No gross renal/ureteric calculi. No evidence of obstru ction or hydronephrosis. There is a 1.1 cm left mid pole hyperdense lesion, probably proteinaceous o r hemorrhagic cyst. The visualized GI tract demonstrate normal caliber loops of small and large bowel. No evidence of christopher wel obstruction. The appendix is within normal limits. The aorta is within normal limits. There is no significant retroperitoneal lymphadenopathy. CT pelvis: The bladder is unremarkable. The uterus is enlarged, measuring 11.0 x 12.4 x 22 cm. Heterogeneous ma terial and hyperdense material is noted within the endometrial canal and along the periphery of the fundus. Several small foci of air is identified. No same free fluid. No same pelvic lymphadenopathy. The rectosigmoid colon is within limits. There is anterior abdominal subcutaneous fat stranding and small amount of fluid within the umbilicu s region. IMPRESSION: 1. Enlarged uterus post , measuring 11.0 x 24 x 22 cm. There is large amount of heterogeneous material within the endometrial canal and peripheral hyperdensity along the periphery and fundus of the uterus, likely consistent with hemorrhagic products. Cannot exclude retained produ cts of conception. Several small foci of air is identified, likely related to recent surgery. Correl ate with clinical findings to exclude infection. 2. No evidence of free fluid or free air. No gross focal fluid collections. 3. Cholelithiasis. 4. No evidence of bowel obstruction. Stool filled loops of large bowel suggestive of constipation. The appendix is within normal limits. 5. Mild anasarca and small amount of fluid within the umbilical region. RPTAT: AAPP Laxmi Lucio Physician Date Time Electronically viewed and signed by Laxmi Lucio Physician on 01/26/2017 16:04 DARIEN/
[2017-01-26 16:51] LABS: ADD UMIC YES; UR ASCORBIC ACID NEGATIVE (NEGATIVE); UR BILIRUBIN (Dip) NEGATIVE (NEGATIVE); UR BLOOD (Dip) 1+ mg/dL (NEGATIVE); UR CLARITY CLEAR (CLEAR); UR COLOR YELLOW (YELLOW); UR GLUCOSE (Dip) NEGATIVE (NEGATIVE); UR KETONES (Dip) NEGATIVE (NEGATIVE); UR LEUKOCYTE ESTERASE (Dip) 1+ Leu/ul (NEGATIVE); UR NITRITE (Dip) NEGATIVE (NEGATIVE); UR RBC 2 /HPF (0-5); UR TOTAL PROTEIN (Dip) NEGATIVE (NEGATIVE); UR UROBILINOGEN (Dip) 1+ mg/dL (NEGATIVE)
--- NOTE | 2017-01-26 17:26 | RADRPT ---
PROCEDURE: US Pelvis. CLINICAL INDICATION: Pelvic pain. section on 01/20/2017. TECHNIQUE: The pelvis was evaluated with transabdominal sonography in the axial and sagittal plane s. COMPARISON: No prior study is available for comparison. FINDINGS: The uterus measures 19.2 x 11.5 x 7.4 cm. The endometrium is markedly heterogeneous and thickened me asuring 37 mm. There is no uterine mass. The ovaries are not visualized. There is no other pelvic ma ss or free fluid. IMPRESSION: 1. Enlarged uterus consistent with the state. 2. Markedly thickened endometrium consistent with blood products or retained products of conception . 3. Ovaries not visualized. RPTAT: QQ .Carlos Enrique Palmer MD, MD Date Time Electronically viewed and signed by .Carlos Enrique Palmer MD, on 01/26/2017 17:26 .R/
[2017-01-26] MEDS ORDERED: VANCOMYCIN 1 GM (PMX) 250 ML IVPB STA (17:27)
[2017-01-26] MEDS ORDERED: CIPROFLOXACIN 400MG/D5W 200 ML IVPB ONE (17:30)
--- NOTE | 2017-01-26 17:36 | HP ---
Date/Time of Note Date/Time of Note DATE: 01/26/17 TIME: 17:32 Assessment/Plan VTE Prophylaxis VTE Prophylaxis Intervention: ambulation Assessment/Plan Assessment/Plan Wound cellulitis Status post We will start on IV antibiotics Warm packs on incision HPI/ROS Admit Date/Time Admit Date/Time January 26, 2017 Hx of Present Illness 26-year-old female status post 6 days ago for macrosomia appear to be diabetic and morbidly obese complaining of progressive onset of a redness around the incision area. She also complaining of pain and started having drainage and emergency room Drainage that appears to be serous ROS Constitutional: improved, no complaints Eyes: no complaints ENT: no complaints Respiratory: no complaints Cardiovascular: no complaints Gastrointestinal: no complaints Genitourinary: no complaints Musculoskeletal: no complaints Skin: erythema, no complaints, other (Skin is erythematous around the incision and a slightly indurated) Neurologic: no complaints Endocrine: no complaints Lymphatic: no complaints Psychological: nl mood/affect, no complaints Immunologic: no complaints PMH/Family/Social Past Medical History Medical History: diabetes Past Surgical History Status post Family History Significant Family History: no pertinent family hx Social History Alcohol Use: none Smoking Status: Never smoker Drug Use: none Exam/Review of Systems Vital Signs Vitals Vital Signs Date Time Temp Pulse Resp B/P Pulse Ox O2 Delivery O2 Flow Rate FiO2 01/26/17 12:56 98.9 93 18 130/72 95 Exam Exam Incision and appear to be well reapproximated draining serous fluid from her right corner Erythema extends about 4 fingerbreadth above the incision and to 3 fingerbreadths below the incision Incision appears to be slightly indurated as well Constitutional: alert, oriented, well developed Psych: nl mood/affect, no complaints Head: atraumatic, normocephalic Eyes: EOMI, PERRL, nl conjunctiva, nl lids, nl sclera ENMT: nl external ears & nose, nl lips & teeth, nl nasal mucosa & septum Neck: non-tender, supple Respiratory: clear to auscultation, normal air movement Cardiovascular: nl pulses, regular rate and rhythm Gastrointestinal: nl liver, spleen, non-tender, soft Genitourinary - Female: uterus (Status post ) Musculoskeletal: nl extremities to inspection Extremities: normal pulses Neurological: GRIZZLY WORKER II-XII intact, nl mental status, nl speech, nl strength Skin: nl turgor, No rash or lesions Lymph: nl lymph nodes Labs Result Diagram: 01/26/17 1400 01/26/17 1400 Medications Medications Current Medications Ciprofloxacin/ Dextrose (Cipro Ivpb) 200 ml @ 200 mls/hr ONCE ONCE IVPB ; Start 01/26/17 at 17:30; Stop 01/26/17 at 18:29 BRENDA YEBOAH MD Jan 26, 2017 17:36
[2017-01-26] MEDS ORDERED: NACL 0.9% 3 ML SYG IV SCH (18:00)
[2017-01-26] MEDS ORDERED: metFORMIN (XR) 500 MG TAB PO ONE (18:00)
[2017-01-26] MEDS: SOD CHLORIDE 0.45% 1,000 ML IV SCH (19:04)
[2017-01-26] MEDS ORDERED: GLUCOSE GEL 15 GRAM TUBE BUCCAL PRN (19:30)
[2017-01-26] MEDS ORDERED: GLUCOSE GEL 15 GRAM TUBE PO PRN ×2 (19:30)
[2017-01-26] MEDS ORDERED: GLUCAGON 1 MG INJ IM PRN (19:30)
[2017-01-26] MEDS ORDERED: DEXTROSE 50% 50 ML SYRINGE IV PRN ×2 (19:30)
[2017-01-26] MEDS ORDERED: ACETAMINOPHEN 325 MG TAB PO PRN (20:00)
[2017-01-26] MEDS ORDERED: HYDROCODONE/APAP (5/325) TAB PO PRN (20:00)
[2017-01-26 21:48] VITALS: TEMP 97.9
[2017-01-26 22:25] VITALS: Ht 149.9 cm; Wt 81.2 kg
[2017-01-26 22:26] VITALS: BP 111/76; PULSE 69; RESP 18
[2017-01-26] MEDS: IBUPROFEN 800 MG TAB PO SCH (22:30)
[2017-01-26] MEDS: metroNIDAZOLE 500 MG/NS (PMX) 100 ML IVPB SCH (23:14)
[2017-01-27] MEDS ORDERED: VANCOMYCIN 1 GM (PMX) 250 ML IVPB SCH (02:00)
[2017-01-27 02:13] VITALS: BP 111/75; PULSE 74; RESP 18
[2017-01-27] MEDS: SOD CHLORIDE 0.45% 1,000 ML IV SCH ×2 (05:15→13:50)
[2017-01-27] MEDS: IBUPROFEN 800 MG TAB PO SCH ×2 (05:27→19:19)
[2017-01-27 07:12] LABS: BASOPHIL # 0.1 10^3/ul (0.0-0.1); BASOPHILS % 0.5 % (0.0-2.0); EOSINOPHILS # 0.4 10^3/ul (0.0-0.5); EOSINOPHILS % 4.5 % (0.0-7.0); HEMATOCRIT 26.5 % (37.0-47.0); HEMOGLOBIN 8.8 g/dl (12.0-16.0); LYMPHOCYTES # 2.1 10^3/ul (0.8-2.9); LYMPHOCYTES % 22.7 % (15.0-51.0); MEAN CORPUSCULAR HEMOGLOBIN 31.3 pg (29.0-33.0); MEAN CORPUSCULAR HGB CONC 33.2 g/dl (32.0-37.0); MEAN CORPUSCULAR VOLUME 94.3 fl (82.0-101.0); MEAN PLATELET VOLUME 9.6 fl (7.4-10.4); MONOCYTE # 0.6 10^3/ul (0.3-0.9); MONOCYTES % 6.3 % (0.0-11.0); NEUTROPHILS % 64.9 % (39.0-77.0); PLATELET COUNT 398 10^3/UL (140-415); RED BLOOD COUNT 2.81 10^6/ul (4.20-5.40); RED CELL DISTRIBUTION WIDTH 13.7 % (11.5-14.5); WHITE BLOOD COUNT 9.3 10^3/ul (4.8-10.8)
[2017-01-27 07:40] LABS: ALBUMIN 2.7 g/dl (3.3-4.9); ALBUMIN/GLOBULIN RATIO 0.77; BILIRUBIN,INDIRECT 0.2 mg/dl (0-1.1); BILIRUBIN,TOTAL 0.2 mg/dl (0.2-1.3); CALCIUM 8.1 mg/dl (8.4-10.2); CREATININE 0.6 mg/dl (0.44-1.00); POTASSIUM 4.4 mmol/L (3.5-5.1); TOTAL PROTEIN 6.2 g/dl (6.1-8.1)
[2017-01-27 08:15] VITALS: BP 120/84; PULSE 71; RESP 18
[2017-01-27] MEDS ORDERED: CIPROFLOXACIN 400MG/D5W 200 ML IVPB SCH (09:00)
[2017-01-27] MEDS: metroNIDAZOLE 500 MG/NS (PMX) 100 ML IVPB SCH (09:29)
[2017-01-27] MEDS ORDERED: VANCOMYCIN 750 MG in DEXTROSE 5% 150 ML IVPB SCH (11:30)
--- NOTE | 2017-01-27 18:28 | DS ---
Date/Time of Note Date/Time of Note DATE: 01/27/17 TIME: 18:24 Discharge Summary Admission/Discharge Info Admit Date/Time Jan 26, 2017 at 17:48 Discharge Date/Time January 27, 2017 Discharge Diagnosis Status post wound Patient Condition: Good Hx of Present Illness 26-year-old female status post 6 days ago for macrosomia appear to be diabetic and morbidly obese complaining of progressive onset of a redness around the incision area. She also complaining of pain and started having drainage and emergency room Currently has no incisional drains Erythema at this moment is much less and almost clear We will DC home on p.o. antibiotics including Bactrim Cipro and Flagyl Hospital Course Uncomplicated Home Meds Active Scripts Metformin* (Glucophage* XR) 500 Mg Tab.sr.24h, 500 MG PO BID, #120 6 Refills Prov:BRENDA YEBOAH MD 01/23/17 Ibuprofen* (Ibuprofen*) 800 Mg Tablet, 800 MG PO Q8, #30 TAB 0 Refills Prov:BRENDA YEBOAH MD 01/23/17 Reported Medications Ferrous Sulfate* (Ferrous Sulfate*) 325 Mg Tabec, 325 MG PO DAILY, TAB 11/28/16 Calcium Carbonate* (Calcium Carbonate*) 600 MG Ca Tab, 600 MG PO, TAB 11/28/16 Vit-Iron Fumarate-FA ( Tablet) 1 Each Tablet, 1 TAB PO DAILY, TAB 11/28/16 Follow-up Plan 8 days in clinic Primary Care Provider Care Physician No Primary Time spent on discharge: > 30 minutes Pending Labs Laboratory Tests Test 01/27/17 06:19 01/27/17 12:13 01/27/17 17:37 White Blood Count 9.310^3/ul (4.8-10.8) Red Blood Count 2.8110^6/ul (4.20-5.40) Hemoglobin 8.8g/dl (12.0-16.0) Hematocrit 26.5% (37.0-47.0) Mean Corpuscular Volume 94.3fl (82.0-101.0) Mean Corpuscular Hemoglobin 31.3pg (29.0-33.0) Mean Corpuscular Hemoglobin Concent 33.2g/dl (32.0-37.0) Red Cell Distribution Width 13.7% (11.5-14.5) Platelet Count 62872^3/UL (140-415) Mean Platelet Volume 9.6fl (7.4-10.4) Neutrophils % 64.9% (39.0-77.0) Lymphocytes % 22.7% (15.0-51.0) Monocytes % 6.3% (0.0-11.0) Eosinophils % 4.5% (0.0-7.0) Basophils % 0.5% (0.0-2.0) Nucleated Red Blood Cells % 0.0/100WBC (0.0-0.0) Neutrophils # 6.010^3/ul (1.6-7.5) Lymphocytes # 2.110^3/ul (0.8-2.9) Monocytes # 0.610^3/ul (0.3-0.9) Eosinophils # 0.410^3/ul (0.0-0.5) Basophils # 0.110^3/ul (0.0-0.1) Nucleated Red Blood Cells # 0.010^3/ul (0.0-0.0) Sodium Level 140mmol/L (135-144) Potassium Level 4.4mmol/L (3.5-5.1) Chloride Level 109mmol/L (97-110) Carbon Dioxide Level 23mmol/L (21-31) Anion Gap 12 (8-16) Blood Urea Nitrogen 13mg/dl (7-20) Creatinine 0.60mg/dl (0.44-1.00) Glucose Level 89mg/dl (70-220) Calcium Level 8.1mg/dl (8.4-10.2) Total Bilirubin 0.2mg/dl (0.2-1.3) Direct Bilirubin 0.00mg/dl (0.00-0.20) Indirect Bilirubin 0.2mg/dl (0-1.1) Aspartate Amino Transf (AST/SGOT) 31IU/L (15-46) Alanine Aminotransferase (ALT/SGPT) 47IU/L (13-69) Alkaline Phosphatase 102IU/L (42-121) Total Protein 6.2g/dl (6.1-8.1) Albumin 2.7g/dl (3.3-4.9) Globulin 3.50g/dl (1.3-3.2) Albumin/Globulin Ratio 0.77 Bedside Glucose 81mg/dL (70-220) 97mg/dL (70-220) BRENDA YEBOAH MD Jan 27, 2017 18:28
--- NOTE | 2017-01-27 18:29 | PDOCDIS ---
Discharge Instructions DIAGNOSIS Discharge Diagnosis Status post wound cellulitis CONDITION Patient Condition: Good ACTIVITY: Activity Restrictions: Avoid heavy lifting No Sexual Activity Avoid Heavy Housework Weight Bearing Bathing Restrictions: Shower FOLLOW UP/APPOINTMENTS Follow-up Plan 8 days in clinic OTHER ORDERS: Other Orders: Warm towel to incision 3 times a day each time 20 minutes BRENDA YEBOAH MD Jan 27, 2017 18:29
== END 2017-01-27 19:48 | disposition home or self-care (01) | DRG 781 ==
LOC: FTE 12:48 → MS3 17:48
PROVIDERS: ADMIT Obstetrics & Gynecology; ATTEND Obstetrics & Gynecology
DX: O99.89 Other specified diseases and conditions complicating pregnancy, childbirth and the puerperium (principal); E66.01 Morbid (severe) obesity due to excess calories; L53.9 Erythematous condition, unspecified; Z68.36 Body mass index [BMI] 36.0-36.9, adult; E11.9 Type 2 diabetes mellitus without complications
CPT/HCPCS: 36415; 74177; 76856; 80053; 81001; 82962; 84702; 85025; 96374; 96375; J0744; J3370; Q9967